=== PATIENT | female | born 2000 ===

== ENCOUNTER 2021-02-19 07:17 | Inpatient (IN) | payer OTHER ==
[~2021-02-19] VITALS: Ht 154.9 cm; Wt 3.2 kg
[2021-02-19] MEDS ORDERED: PRENATAL TABLE1 EAC1 PO (08:10)
== END 2021-02-22 13:10 | disposition home or self-care (01) | DRG 788 ==
LOC: LDR 07:17 → OB/GYN 23:00
PROVIDERS: ADMIT Obstetrics & Gynecology; ATTEND Obstetrics & Gynecology
PROC: 4A1HXFZ Monitoring of Products of Conception, Cardiac Rhythm, External Approach (ICD-10-PCS; 2021-02-19)
PROC: 10D00Z1 Extraction of Products of Conception, Low, Open Approach (ICD-10-PCS; principal; 2021-02-19 20:00)
DX: O62.0 Primary inadequate contractions (principal); Z3A.39 39 weeks gestation of pregnancy; Z37.0 Single live birth; Z20.822 Contact with and (suspected) exposure to COVID-19